=== PATIENT | female | born 1985 | race Hispanic/Latino ===

== ENCOUNTER 2016-12-27 15:00 | Emergency (ER) | payer OTHER ==
[~2016-12-27 15:00] MED LIST: LEVSIN0.125 MG PO; NEXIUM20 MG PO
[2016-12-27] MEDS ORDERED: MIRENA1 EACH (17:09)
[2016-12-27] MEDS ORDERED: PROBIOTIC1 EACH PO (17:09)
--- NOTE | 2016-12-27 17:10 | ED GI/GU/ABDOMINAL COMPLAINT ---
History of Present Illness General Chief Complaint: Female Urogenital Problems Stated Complaint: VAGINAL DISCHARGE Source: patient, old records Exam Limitations: no limitations Vital Signs & Intake/Output Vital Signs & Intake/Output Vital Signs Date Time Temp Pulse Resp B/P Pulse O2 O2 Flow FiO2 Ox Delivery Rate 12/27 1805 98.5 78 18 124/78 98 Room Air Room Air 12/27 1526 98.1 80 29 129/79 99 Allergies Coded Allergies: NO KNOWN ALLERGIES (05/03/13) Reconcile Medications Fluconazole (Diflucan) 150 MG TABLET 1 TAB PO Q72HR CANDIDIAS Lactobacillus Acidophilus (Probiotic) (Unknown Strength) CAPSULE (Unknown Dose ) PO DAILY PROBIOTIC (Reported) Levonorgestrel (Mirena) 20 MCG/24 HOUR (5 YEARS) IUD CONTROL (Reported) Metronidazole (Flagyl) 500 MG TABLET 1 TAB PO BID BV Triage Note: PER PT SEVERE VAGINAL ITCHING AND ODOR AND DISCHARGE X 4 WEEKS LMP [address] LIU BUT HAS NOT SEEN HER YET. Triage Nurses Notes Reviewed? yes LMP (ages 10-50): 2 weeks ? n Is pt currently ? No Onset: Gradual Duration: week(s): (4), constant Timing: recent history Quality/Severity: cramping Severity Numbers: 7 Location: vaginal Radiation: no radiation Activities at Onset: none Sexually Active: Yes Last Time You Were Sexual: less than 2 months ago Sexual Orientation: Heterosexual Use of Protection: No No Modifying Factors: none Associated Symptoms: denies HPI: 31-year-old female presents emergency room for evaluation complaining of white foul-smelling vaginal discharge for the past 4 weeks. She essentially active with one partner and they do not use protection. Her last initial cycle was 2 weeks ago, she denies any abdominal pain however states that her genital have been pruritic, she denies any swelling or redness. Her only history is significant for herpes. She's not sought care for the symptoms until today.. Patient denies any exposure to any known possible section transmitted diseases or urinary symptoms otherwise patient denies chance of . no pain, no fever, chills, nv (EMILY BECKETT) Past History Travel History Traveled to [place] past 21 day No Medical History Any Pertinent Medical History? see below for history Neurological: NONE EENT: NONE Cardiovascular: NONE Respiratory: NONE Gastrointestinal: NONE Hepatic: NONE Renal: NONE Musculoskeletal: NONE Psychiatric: NONE Endocrine: NONE Blood Disorders: factor 5 Surgical History Surgical History: non-contributory Psychosocial History What is your primary language Bahamian Tobacco Use: Never used Family History Hx Contributory? No (EMILY BECKETT) Review of Systems Review of Systems Constitutional: Reports: see HPI. All Other Systems: Reviewed and Negative Comments Review of systems: See HPI, All other systems negative. Constitutional, no chills no fever, no malaise HEENT: No visual changes no sore throat no congestion Cardiovascular: No chest pain , no palpitation Skin, no rashes, no change in skin Respiratory: No dyspnea no cough no sputum GI: No nausea no vomiting, : No dysuria No hematuria, no frequency, discharge Muscle skeletal: No joint pain, no back pain, no neck pain, Neurologic: N no headache Psych: No stress no anxiety Heme/endocrine: No bruising no bleeding Immunology: No lymphadenopathy (EMILY BECKETT) Physical Exam Physical Exam General Appearance: well developed/nourished, alert, awake Gastrointestinal: soft, non-tender Comments: Well-developed well-nourished patient in no apparent distress. HEENT: Atraumatic, extraocular motion intact Neck: Supple, FROM Back: FROM, Cardiovascular: Regular rate and rhythms no murmurs rubs Respiratory: No respiratory distress. Patient speaking in full complete sentences. Breath sounds clear to auscultation bilaterally: NO W/R/R Abdomen: Soft nontender no rebound or guarding Female : Normal external genitalia, Normal cervix, nontender. Noraml adnexa. There is white discharge noted to the vaginal vault, no cervical motion tenderness No lesionsor bleeding. Uterus normal in size. Extremities: full range of motion Neuro: Alert and oriented x3 Skin: Warm & dry;No appreciable rash on exposed skin Psych: Mood affect normal, normal memory normal judgment. Core Measures ACS in differential dx? No Severe Sepsis Present: No Septic Shock Present: No (EMILY BECKETT) Progress Differential Diagnosis: ectopic , intrauterine , PID/ cervicitis, perforated viscous, threatened AB, UTI/pyelo Plan of Care: Orders Procedure Date/time Status CHLAMYDIA-GC DNA PROBE 12/27 1746 Active TRICHOMONAS 12/27 173 Complete POTASSIUM HYDROXIDE (LILIANA) 12/27 173 Complete GENITAL CULTURE 12/27 173 Active CHLAMYDIA-GC DNA PROBE 12/27 1531 Active URINE 12/27 1527 Complete URINALYSIS 12/27 152 Complete Laboratory Tests 12/27/16 1639: Urine Color YEL, Urine Clarity CLEAR, Urine pH 6.0, Ur Specific [place] 1.020, Urine Protein NEG, Urine Ketones NEG, Urine Nitrite NEG, Urine Bilirubin NEG, Urine Urobilinogen 0.2, Ur Leukocyte Esterase NEG, Ur Microscopic EXAM NOT REQUIRED, Urine Hemoglobin NEG, Urine Glucose NEG, Urine Test NEGATIVE Microbiology 12/27 1749 GENITAL: GC DNA Probe - RECD 12/27 1749 GENITAL: Chlamydia DNA Probe (IMELDA) - RECD 12/27 1749 GENITAL: LILIANA Preparation - COMP 12/27 1749 GENITAL: Trichomonas Preparation - COMP 12/27 1749 GENITAL: Genital Culture - RECD 12/27 1645 URINE ROUT: Urine Culture - CAN Cancelled: Cancelled via OE: Per MD Decision 12/27 163 URINE ROUT: GC DNA Probe - RECD 12/27 163 URINE ROUT: Chlamydia DNA Probe (IMELDA) - RECD I discussed with the patient at length all of their results. I had an extensive conversation regarding need for close follow up with their primary care physician as well as Dr. Liu this week as well as return precautions. I answered all of their questions, they feel comfortable with the plan and follow- up care. I discussed the medications that they will receive with the patient. We will treat for suspected BV versus candidiasis Ludmila Montenegrolucan, patient received phone call if results are positive. , I I gave them signs and symptoms that could indicate an adverse reaction. I have advised them to limit their activities until they can see how they respond to the medication. (EMILY BECKETT) Initial ED EKG: none (EMILY BECKETT) Departure Departure Time of Disposition: 1733 Disposition: HOME OR SELF CARE Condition: Stable Clinical Impression Primary Impression: Vaginitis Referrals: VINAY SLOIS (PCP/Family) TAIWO DAVIDSON,WILLIAM Price Additional Instructions: FOLLOW UP WITH DR LIU THIS WEEK. WICHO HUANG DIRECTED. RETURN WITH ANY CONCERNS. THESE PRESCRIPTIONS WERE SENT TO YOUR PHARMACY Departure Forms: Customer Survey General Discharge Information Prescriptions: Current Visit Scripts Metronidazole (Flagyl) 1 TAB PO BID #14 TAB Fluconazole (Diflucan) 1 TAB PO Q72HR #2 TAB (EMILY BECKETT) PA/SEARCH ENGINE OPTIMIZATION ANALYST Co-Sign Statement Statement: ED Attending supervision documentation- [] I saw and evaluated the patient. I have also reviewed all the pertinent lab results and diagnostic results. I agree with the findings and the plan of care as documented in the PA's/SEARCH ENGINE OPTIMIZATION ANALYST's documentation. [X I have reviewed the ED Record and agree with the PA's/SEARCH ENGINE OPTIMIZATION ANALYST's documentation. [] Additions or exceptions (if any) to the PAs/SEARCH ENGINE OPTIMIZATION ANALYST's note and plan are summarized below: [] (LIMA ROBERTSON DO
[2016-12-27] MEDS ORDERED: DIFLUCAN150 M1 PO (17:46)
[2016-12-27] MEDS ORDERED: FLAGYL500 MG PO (17:46)
[2016-12-27 18:05] VITALS: BP 124/78
== END 2016-12-27 18:06 ==
LOC: ERH 15:00
DX: N76.0 Acute vaginitis (principal)
CPT/HCPCS: 87070; 81003; 81025; 87086; 87491; 87591